=== PATIENT | male | born 1995 | race Caucasian/White ===

== ENCOUNTER 2023-07-31 16:39 | Emergency (ER) | payer OTHER ==
[2023-07-31] MEDS ORDERED: Lidocaine 1% PF 5 ML VIAL ONE (16:49)
[2023-07-31] MEDS ORDERED: Boostrix 0.5 ML (Tdap) VIAL (>/=7 yrs of age) ONE (17:17)
== END 2023-07-31 17:15 | disposition home or self-care (01) ==
LOC: BURERS 16:39
DX: S01.01XA Laceration without foreign body of scalp, initial encounter (principal); Z23 Encounter for immunization; W22.8XXA Striking against or struck by other objects, initial encounter
CPT/HCPCS: 12001; 90471; 90715